=== PATIENT | male | born 1935 | race Caucasian/White ===

== ENCOUNTER 2018-01-04 08:46 | Outpatient (RCR) | payer MEDICARE, OTHER ==
[~2018-01-04 08:46] MED LIST: AMLO-96 PO; ASP325 PO; ASPI81TA94 PO; ASPRIN; AZI250 PO; CHOL10005 PO; CHOL100058 PO; CYA1000 PO; CYAN250T15 PO; DEXTROSE 5%(*) 100 ML BAG 100 ML IVPB PRN; GLUC-198 PO; GLUC100026 PO; LIDOCAINE/SOD BICARB 8.4% SYR ID PRN; MULT1CAP59 PO; MULT1TAB54 PO; NO ROUTINE MEDS; NS(*) 0.9% 100 ML BAG 100 ML IVPB PRN; OMEG-36 PO; OMEG1CAP39 PO; OMEP-218 PO; OMEP40CA45 PO; [UNRECOGNIZED DRUG - OTHER] PO
[2018-01-04 09:00] VITALS: BP 162/91
[2018-01-04 09:17] LABS: PLATELET COUNT, AUTOMATED 153 K/uL (150-450)
--- NOTE | 2018-01-04 16:42 | RADIOLOGY IMAGING REPORT ---
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 Additional pertinent history: none TECHNIQUE: Spiral scan was obtained from the hard palate through the upper chest without and with i ntravenous contrast Contrast dose: 75 mL Isovue 370 intravenously. One of the following dose optimization techniques was utilized in the performance of this exam: Autom ated exposure control; adjustment of the mA and/or kV according to the patient's size; or use of an i terative reconstruction technique. Specific details can be referenced in the facility's radiology CT exam operational policy. COMPARISON STUDIES: Neck MRI 11/26/15 FINDINGS: Visualized orbits / brain / paranasal sinuses: negative Nasal cavity / nasopharynx: negative Oral cavity / oropharynx / hypopharynx: Much of the oral cavity is obscured by extensive metallic ar tifact arising from the teeth. No obvious oral cavity masses. Parapharyngeal / lithographic proofer apprentice spaces: negative Major salivary glands: No definable recurrent mass in the right parotidectomy bed. Left parotid nor mal though partially obscured by metallic artifact. Submandibular and sublingual glands are normal. Larynx / trachea / esophagus / thyroid: negative Perivertebral space: negative Vessels: negative Bones: No lytic or blastic bone lesion. Advanced degenerative changes of the cervical spine. Skin / subcutaneous spaces: There is loss of subcutaneous fat and deep fascial fat planes in the righ t neck, post treatment in origin. There is no definable soft tissue mass. Lymph nodes: negative Upper chest: Advanced centrilobular emphysema both upper lungs. IMPRESSION: Stable chronic and postsurgical changes from previous right parotid gland surgery and right neck diss ection. No evidence of locally recurrent disease or metastatic disease in the neck. Report Dictated By: Jono Caldwell MD at 01/04/2018 4:31 PM Report E-Signed By: Jono Caldwell MD at 01/04/2018 4:39 PM WSN:[id number]
--- NOTE | 2018-01-04 17:03 | RADIOLOGY IMAGING REPORT ---
FACILITY: [facility] PATIENT NAME: Saleem Quach : 1935 MR: [id number] V: [id number] EXAM DATE: ORDERING PHYSICIAN: KIKI GÓMEZ TECHNOLOGIST: Location: [facility] [place] Patient: Saleem Quach : 1935 Visit/Account:[id number] Date of Sevice: 01/04/2018 CHEST W W/O CONTRAST History: Parotid cancer ADDITIONAL CLINICAL HISTORY: None TECHNIQUE: Contiguous axial images were performed through the chest to the level of the adrenal gla nds with and without IV contrast. Coronal and sagittal reformatting was also performed. Dose Loweri ng Technique One of the following dose optimization techniques was utilized in the performance of this exam: Autom ated exposure control; adjustment of the mA and/or kV according to the patient's size; or use of an i terative reconstruction technique. Specific details can be referenced in the facility's radiology C T exam operational policy. Contrast: 75 mL Isovue-370 COMPARISON STUDIES: November 27, 2015. Lungs / Pleura: Moderate emphysematous changes again seen throughout the lungs. Small right lower lobe scar appears stable. Small region of plaque-like pleural thickening along the minor fissure yani ears stable. Small amount secretions are seen in the trachea. Mediastinum/nodes: negative. Heart and vessels: At least moderate atherosclerotic calcifications throughout the visualized thorac ic aorta and visualized abdominal aorta and branch vessels including the coronary arteries. Musculoskeletal / Body wall: Moderate to severe degenerative changes throughout the visualized cerv ical and thoracic spine. Sclerotic density in the left pedicle and left transverse process of T4 yani ears similar to the prior study Upper abdomen: negative. IMPRESSION: Moderate emphysematous changes but the lungs and small amount of right lower lobe scarring and plaque like pleural thickening on the right remains stable Small amount of secretions are present within the trachea At least moderate atherosclerotic calcified occasions throughout the visualized thoracic aorta and vi sualized abdominal aorta and branch vessels including the coronary arteries Sclerotic density in the left pedicle left transverse process of T4 appears similar to the prior stud y. A bone metastasis is not totally excluded Report Dictated By: Jackie Tello MD at 01/04/2018 4:44 PM Report E-Signed By: Jackie Tello MD at 01/04/2018 4:59 PM WSN:[email or web address]
== END 2018-01-15 09:05 | disposition home or self-care (01) ==
LOC: SPU 08:46
PROVIDERS: ATTEND Radiology Radiation Oncology
DX: D11.0 Benign neoplasm of parotid gland (principal)
CPT/HCPCS: 36415; 82040; 82247; 82310; 82374; 82435; 82565; 82947; 84075; 84132; 84155; 84295; 84443; 84450; 84460; 84520; 85025

== ENCOUNTER 2018-01-05 09:52 | Outpatient (RCR) | payer MEDICARE, OTHER ==
[~2018-01-05 09:52] MED LIST changes: -DEXTROSE 5%(*) 100 ML BAG 100 ML IVPB PRN; +IOPAMIDOL 76% 75 ML INFUS BTL 75 ML ONE; -LIDOCAINE/SOD BICARB 8.4% SYR ID PRN; -NS(*) 0.9% 100 ML BAG 100 ML IVPB PRN
--- NOTE | 2018-01-08 10:29 | RADIOLOGY IMAGING REPORT ---
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 Additional pertinent history: none TECHNIQUE: Spiral scan was obtained from the hard palate through the upper chest without and with i ntravenous contrast Contrast dose: 75 mL Isovue 370 intravenously. One of the following dose optimization techniques was utilized in the performance of this exam: Autom ated exposure control; adjustment of the mA and/or kV according to the patient's size; or use of an i terative reconstruction technique. Specific details can be referenced in the facility's radiology CT exam operational policy. COMPARISON STUDIES: Neck MRI 11/26/15 FINDINGS: Visualized orbits / brain / paranasal sinuses: negative Nasal cavity / nasopharynx: negative Oral cavity / oropharynx / hypopharynx: Much of the oral cavity is obscured by extensive metallic ar tifact arising from the teeth. No obvious oral cavity masses. Parapharyngeal / cemetery counselor spaces: negative Major salivary glands: No definable recurrent mass in the right parotidectomy bed. Left parotid nor mal though partially obscured by metallic artifact. Submandibular and sublingual glands are normal. Larynx / trachea / esophagus / thyroid: negative Perivertebral space: negative Vessels: negative Bones: No lytic or blastic bone lesion. Advanced degenerative changes of the cervical spine. Skin / subcutaneous spaces: There is loss of subcutaneous fat and deep fascial fat planes in the righ t neck, post treatment in origin. There is no definable soft tissue mass. Lymph nodes: negative Upper chest: Advanced centrilobular emphysema both upper lungs. IMPRESSION: Stable chronic and postsurgical changes from previous right parotid gland surgery and right neck diss ection. No evidence of locally recurrent disease or metastatic disease in the neck. Report Dictated By: Jono Caldwell MD at 01/04/2018 4:31 PM Report E-Signed By: Jono Caldwell MD at 01/04/2018 4:39 PM WSN:[id number]
--- NOTE | 2018-01-08 10:31 | RADIOLOGY IMAGING REPORT ---
[place] [facility] [place]IENT NAME: Saleem Quach : 1935 MR: [id number] V: [id number] EXAM DATE: ORDERING PHYSICIAN: RASHEL GILMORE TECHNOLOGIST: Location: [facility] Patient: Saleem Quach : 1935 Visit/Account:[id number] Date of Sevice: 01/04/2018 CHEST W W/O CONTRAST History: Parotid cancer ADDITIONAL CLINICAL HISTORY: None TECHNIQUE: Contiguous axial images were performed through the chest to the level of the adrenal gla nds with and without IV contrast. Coronal and sagittal reformatting was also performed. Dose Loweri ng Technique One of the following dose optimization techniques was utilized in the performance of this exam: Autom ated exposure control; adjustment of the mA and/or kV according to the patient's size; or use of an i terative reconstruction technique. Specific details can be referenced in the facility's radiology C T exam operational policy. Contrast: 75 mL Isovue-370 COMPARISON STUDIES: November 27, 2015. Lungs / Pleura: Moderate emphysematous changes again seen throughout the lungs. Small right lower lobe scar appears stable. Small region of plaque-like pleural thickening along the minor fissure yani ears stable. Small amount secretions are seen in the trachea. Mediastinum/nodes: negative. Heart and vessels: At least moderate atherosclerotic calcifications throughout the visualized thorac ic aorta and visualized abdominal aorta and branch vessels including the coronary arteries. Musculoskeletal / Body wall: Moderate to severe degenerative changes throughout the visualized cerv ical and thoracic spine. Sclerotic density in the left pedicle and left transverse process of T4 yani ears similar to the prior study Upper abdomen: negative. IMPRESSION: Moderate emphysematous changes but the lungs and small amount of right lower lobe scarring and plaque like pleural thickening on the right remains stable Small amount of secretions are present within the trachea At least moderate atherosclerotic calcified occasions throughout the visualized thoracic aorta and vi sualized abdominal aorta and branch vessels including the coronary arteries Sclerotic density in the left pedicle left transverse process of T4 appears similar to the prior stud y. A bone metastasis is not totally excluded Report Dictated By: Jackie Tello MD at 01/04/2018 4:44 PM Report E-Signed By: Jackie Tello MD at 01/04/2018 4:59 PM WSN:[email or web address]
== END 2018-02-02 12:07 | disposition home or self-care (01) ==
LOC: RAON 09:52
PROVIDERS: ATTEND Radiology Radiation Oncology
DX: Z85.89 Personal history of malignant neoplasm of other organs and systems (principal); Z87.891 Personal history of nicotine dependence; Z92.3 Personal history of irradiation; D75.1 Secondary polycythemia; D11.0 Benign neoplasm of parotid gland
CPT/HCPCS: G0463; Q9967; 36415; 70492; 71270; 82040; 82247; 82310; 82374; 82435; 82565; 82947; 84075; 84132; 84155; 84295; 84443; 84450; 84460; 84520; 85025; 99212

== ENCOUNTER → 2018-05-25 | Outpatient (CLI) | payer MEDICARE ==
[~2018-05-25] MED LIST changes: +AMLO-111 PO; -AMLO-96 PO; -IOPAMIDOL 76% 75 ML INFUS BTL 75 ML ONE
--- NOTE | 2018-05-25 11:57 | RADIOLOGY IMAGING REPORT ---
FACILITY: [facility] [place] PATIENT NAME: Saleem Quach : 1935 MR: [id number] V: [id number] EXAM DATE: ORDERING PHYSICIAN: VEDA LAURENT TECHNOLOGIST: Location: [facility] Patient: Saleem Quach : 1935 Visit/Account:[id number] Date of Sevice: 05/25/2018 Exam type: CHEST PA AND LAT History: COPD, current smoker Comparison: September 11, 2014 Findings: Again noted is hyperinflation of the lung antoine and chronic peribronchial thickening. There is no e vidence of acute appearing infiltrates pleural effusions or pulmonary edema. Cardiac silhouette is n ormal in size. There is marked ectasia the thoracic aorta. There is a mild compression fracture in a midthoracic vertebral body appears slightly increased when compared the prior study. IMPRESSION: 1. Hyper inflation lung antoine Chronic peribronchial thickening Report Dictated By: Jackie Tello MD at 05/25/2018 11:52 AM Report E-Signed By: Jackie Tello MD at 05/25/2018 11:53 AM WSN:[email or web address]
== END ==
LOC: RAD 10:06
PROVIDERS: ATTEND Family Medicine
DX: J44.9 Chronic obstructive pulmonary disease, unspecified (principal)
CPT/HCPCS: 71046

== ENCOUNTER 2018-06-23 07:08 | Outpatient (RCR) | payer MEDICARE, OTHER | END 2018-06-23 16:57 | disposition home or self-care (01) | LOC: RAON 07:08 | PROVIDERS: ATTEND Radiology Radiation Oncology | DX: Z85.89 Personal history of malignant neoplasm of other organs and systems (principal); Z87.891 Personal history of nicotine dependence; Z92.3 Personal history of irradiation; D75.1 Secondary polycythemia ==

== ENCOUNTER 2018-07-06 10:00 | Outpatient (RCR) | payer MEDICARE, OTHER ==
[2018-06-30 13:01] VITALS: BP 142/84
[2018-06-30 13:15] LABS: PLATELET COUNT, AUTOMATED 157 K/uL (150-450)
--- NOTE | 2018-07-06 13:30 | ONCOLOGY FOLLOW UP NOTE ---
EVENT DATE: July 06, 2018 REASON FOR VISIT Oncology surveillance, prior history of parotid malignancy to lymph nodes in 2014, status post surgery and radiation therapy. 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 Sevilla. Tumor size 3 cm. Remaining lymph nodes were negative. Margins close at 1 mm but negative. Patient was pathologically stage III. Patient received external beam radiation therapy to the prostate bed and regional lymph nodes, completing 60 Gy in April. INTERVAL HISTORY Patient was seen back in the Oncology Clinic for surveillance appointment. Clinically, doing well. He sees Dr. Kamara for medical needs. He denies any pain. He denies any xerostomia. Excellent taste. He states that his dry mouth recovered about a year after treatment. Does not need water routinely. Patient had a chest x-ray prior to this appointment, which was clear. He had CBC and CMP, which were normal with the exception of elevated hemoglobin in 19 range (secondary to erythrocytosis). Patient states that he smokes small cigars, about half a pack per day. The CMP was normal with exception of mildly elevated alkaline phosphatase at 170. A year ago, the alk phos was 220 so the trend is downward. Remaining liver enzymes are normal. No recent bone trauma. PAST MEDICAL HISTORY 1. Grade III salivary ductal carcinoma in 2014. 2. Polycythemia, secondary to erythrocytosis. 3. COPD. 4. History of glaucoma. PAST SURGICAL HISTORY 1. Parotid surgery in January 2015. 2. Lymph node removal. 3. Right rotator cuff surgery in October 2013. ALLERGIES None. MEDICATIONS Aspirin 81 mg per day. REVIEW OF SYSTEMS Entirely negative with exception of occasional cough, minor bruising. SOCIAL HISTORY Patient lives with his . She has Alzheimer's disease by his report. PHYSICAL EXAMINATION GENERAL: A pleasant 82-year-old gentleman who appears slightly younger than his stated age. VITAL SIGNS: BP 162/91, pulse 70, respirations 16, O2 sat 91% on room air, weight 160. NECK: No palpable lymphadenopathy of the neck. HEENT: Intraoral inspection reveals no suspicious lesions, fair dentition. LUNGS: Auditory rhonchi with distant breath sounds bilaterally, consistent with tobacco use.. HEART: Regular. No gross organomegaly. NEURO: Intact. IMPRESSION This is an 82-year-old gentleman who is now 3-1/2 years from the cancer diagnosis and treatment for parotid malignancy. He has done exceptionally well in my opinion. He will return to the clinic in a year for his next followup visit with CBC, CMP, TSH. He will follow up with Dr. Kamara per schedule. He will see us sooner if he is having any abnormal symptoms of lymph node swelling or mass. Overall, I am very pleased with his clinical course to date. All questions were answered to his satisfaction over a 40 minute appointment today. [place]
== END 2018-07-23 15:39 | disposition home or self-care (01) ==
LOC: RAON 10:00
PROVIDERS: ATTEND Radiology Radiation Oncology
DX: Z85.89 Personal history of malignant neoplasm of other organs and systems (principal); Z92.3 Personal history of irradiation; D75.1 Secondary polycythemia; F17.290 Nicotine dependence, other tobacco product, uncomplicated; Z79.82 Long term (current) use of aspirin
CPT/HCPCS: 36415; 84443; 85025; G0463; 82040; 82247; 82310; 82374; 82435; 82565; 82947; 84075; 84132; 84155; 84295; 84450; 84460; 84520; 99212